=== PATIENT | female | born 1945 | race Caucasian/White ===

== ENCOUNTER → 2019-07-02 | Day surgery (SDC) | payer MEDICARE ==
[2019-06-28 09:00] LABS: BASOPHILS # (AUTO) 0.1 (0.0-0.1); BASOPHILS % 0.9 % (0.0-1.0); EOSINOPHILS # (AUTO) 0.3 (0.0-0.4); EOSINOPHILS % 6.2 % (0.0-6.0); HEMATOCRIT 41.4 % (34.2-44.1); HEMOGLOBIN 13.7 g/dL (12.0-16.0); LYMPHOCYTES # (AUTO) 1.3 (1.0-3.2); LYMPHOCYTES % 23.9 % (18.0-39.1); MEAN CORPUSCULAR HEMOGLOBIN 29.7 pg (28-32); MEAN CORPUSCULAR HGB CONC 33.1 g/dL (31-35); MEAN CORPUSCULAR VOLUME 89.8 fL (81-99); MONOCYTES # (AUTO) 0.6 (0.2-0.8); MONOCYTES % 10.7 % (4.4-11.3); NEUTROPHILS # (AUTO) 3.2 (2.1-6.9); NEUTROPHILS % 57.9 % (38.7-80.0); PLATELET COUNT 177 x10e3/uL (140-360); RED BLOOD COUNT 4.61 x10e6/uL (3.6-5.1); RED CELL DISTRIBUTION WIDTH 12.7 % (11.7-14.4)
[~2019-07-02] MED LIST: ARIMIDEX1 MG PO; CENTRUM SILVER1 EAC3 PO; COSAMIN DS TAB1 EACH PO; FENTANYL CITRATE/PF 100MCG/2 ML INJ ONE; HYOSCYAMINE 0.125 MG TAB ONE; MIDAZOLAM HCL 2 MG/2 ML VIAL ONE; PHENYLEPHRINE HCL 1% 10 MG/ML VIAL ONE; PROPOFOL IV EMULSION 10 MG/ML 50 ML VIAL ONE; SYNTHROID50 MCG PO; TYLENOL EXTRA500 MG PO; VITAMIN D31000 UNI1 PO; VITAMIN D32000 UNI1 PO
--- OUTSIDE RECORDS SUMMARY | 2019-07-02 07:05 | XMS REPORT ---
Author Author [facility] Address Unknown Phone Unavailable Care Team Providers Care Nutrition Associate Name Role Phone Unavailable Unavailable Payers Payer Name Policy Type Policy Number Effective Date Expiration Date Problems This patient has no known problems. Allergies, Adverse Reactions, Alerts Allergy Name Allergy Type Status Severity Reaction(s) Onset Date Inactive Date Treating Clinician Comments levofloxacin DA Active MO 2017-01-08 00:00:00 Medications This patient has no known medications.
--- OUTSIDE RECORDS SUMMARY | 2019-07-02 07:05 | XMS REPORT ---
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 Problem Deviated nasal septum J34.2 Active Problem 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 Active Problem Nasal congestion R09.81 Active Problem 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 Problem Sneezing R06.7 Active Assessment Deviated nasal septum J34.2 Active Assessment Sneezing R06.7 Active Assessment 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 Active Assessment 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 Assessment 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 Assessment Sinusitis - Chronic J32.8 Active Assessment Nasal congestion R09.81 Active Assessment Headache R51 Active Problem Postnasal drip R09.82 Active Medications Medication Code System Code Instructions Start Date End Date Status Dosage Arimidex [facility] [address]-40 Active not defined Centrum Silver [facility] [address]-42 Active not defined Synthroid [facility] [address]-35 Active not defined Vitamin D-3 [facility] [address] Active not defined Cosamin ASU for Joint Health [facility] [address] Active not defined Results Name Result Date Reference Range Unit Abnormality Flag CT Sinus with [place] Summary Purpose eClinicalWorks Submission
--- OUTSIDE RECORDS SUMMARY | 2019-07-02 07:05 | XMS REPORT ---
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
[2019-07-02 10:20] VITALS: BP 120/75
--- NOTE | 2019-07-02 13:00 | Operative Report ---
DATE OF PROCEDURE: 07/02/2019 SURGEON: Cristhian Kang MD PROCEDURE: Colonoscopy with polypectomy. INDICATIONS FOR COLONOSCOPY: Surveillance colonoscopy, personal history of colon polyps. MEDICATIONS: The patient was done under MAC, please see anesthesiologist's note. PROCEDURE IN DETAIL: With the patient in left lateral decubitus position, a flexible fiberoptic Olympus colonoscope was inserted into the rectum with ease and advanced all the way to the cecum. Mucosa overlying the cecum appeared to be within normal limits. One polyp was removed per cold biopsy forceps in the proximal ascending colon. The rest of the ascending, transverse, and descending appeared to be within normal limits. Diverticular disease was noted in the sigmoid colon. The rectum appeared to be within normal limits. The scope was then retroflexed into the distal rectum and small internal hemorrhoids were noted, none of which was actively bleeding. The scope was then straightened out, it was subsequently withdrawn, and the patient tolerated the procedure well. IMPRESSION: 1. Ascending colon polyp, minute, removed per cold biopsy forceps. 2. Diverticulosis. 3. Internal hemorrhoids, none actively bleeding. PLAN: Follow up histology. Continue high-fiber, low-fat diet. Initiate high-fiber supplement. Needs a followup colonoscopy in 5 years. MD JEN Baig/ROSAURA /[id number] cc: Mathew Ryan MD
== END | disposition home or self-care (01) ==
LOC: OR 07:00
PROVIDERS: ATTEND Internal Medicine Gastroenterology
DX: Z09 Encounter for follow-up examination after completed treatment for conditions other than malignant neoplasm (principal); K63.5 Polyp of colon; K52.9 Noninfective gastroenteritis and colitis, unspecified; K57.30 Diverticulosis of large intestine without perforation or abscess without bleeding; K64.8 Other hemorrhoids; Z88.1 Allergy status to other antibiotic agents; Z01.810 Encounter for preprocedural cardiovascular examination; Z01.812 Encounter for preprocedural laboratory examination; Z85.3 Personal history of malignant neoplasm of breast; Z92.3 Personal history of irradiation; Z80.0 Family history of malignant neoplasm of digestive organs
CPT/HCPCS: 36415; 45380; 85025; 88305; 93005; J2250; J2370; J2704; J3010; 45378; 45384; 45385

== ENCOUNTER → 2024-12-17 | Day surgery (SDC) | payer MEDICARE, OTHER ==
[2024-12-09 10:24] LABS: BASOPHILS # (AUTO) 0.1 (0.0-0.1); BASOPHILS % 0.9 % (0.0-1.0); EOSINOPHILS # (AUTO) 0.2 (0.0-0.4); EOSINOPHILS % 3.4 % (0.0-6.0); HEMOGLOBIN 14.2 g/dL (12.0-16.0); LYMPHOCYTES # (AUTO) 1.8 (1.0-3.2); LYMPHOCYTES % 27.2 % (18.0-39.1); MEAN CORPUSCULAR HEMOGLOBIN 29.7 pg (28-32); MEAN CORPUSCULAR HGB CONC 33.8 g/dL (31-35); MEAN CORPUSCULAR VOLUME 87.9 fL (81-99); MONOCYTES # (AUTO) 0.7 (0.2-0.8); MONOCYTES % 10.4 % (4.4-11.3); NEUTROPHILS # (AUTO) 3.8 (2.1-6.9); NEUTROPHILS % 57.8 % (38.7-80.0); PLATELET COUNT 195 x10e3/uL (140-360); RED BLOOD COUNT 4.78 x10e6/uL (3.6-5.1); RED CELL DISTRIBUTION WIDTH 12.7 % (11.7-14.4); WHITE BLOOD COUNT 6.55 x10e3/uL (4.8-10.8)
[~2024-12-17] MED LIST changes: +AMLODIPINE BESYL5 MG PO; +GLUCAGON FOR INJ 1 MG VIAL ONE; +HYDROCHLOROTHIA25 MG PO; -HYOSCYAMINE 0.125 MG TAB ONE; +HYOSCYAMINE SULFATE 0.5 MG/ML INJ ONE; +LIDOCAINE HCL 2% LOCAL INJ 5 ML SDV VIAL INJ ONE; -PHENYLEPHRINE HCL 1% 10 MG/ML VIAL ONE; -PROPOFOL IV EMULSION 10 MG/ML 50 ML VIAL ONE; +PROPOFOL IV EMULSION 50 ML IV ONE
[2024-12-17] MEDS: LACTATED RINGER'S 1,000 ML ONE (06:45)
[2024-12-17 10:00] VITALS: BP 113/70; PULSE 56; RESP 16; O2SAT 98
[2024-12-17 10:16] LABS: ALBUMIN 1.3 g/dL (3.5-5.0); ALKALINE PHOSPHATASE 28 IU/L (40-150); BILIRUBIN,DIRECT 0.2 mg/dL (0.0-0.5); BILIRUBIN,TOTAL 0.4 mg/dL (0.2-1.2); TOTAL PROTEIN 2.2 g/dL (6.5-8.1)
[2024-12-17 10:18] LABS: ALANINE AMINOTRANSFERASE < 6 IU/L (0-55)
== END | disposition home or self-care (01) ==
LOC: OR 05:58
PROVIDERS: ATTEND Internal Medicine Gastroenterology
DX: K21.9 Gastro-esophageal reflux disease without esophagitis (principal); D12.2 Benign neoplasm of ascending colon; K29.70 Gastritis, unspecified, without bleeding; K31.89 Other diseases of stomach and duodenum; K44.9 Diaphragmatic hernia without obstruction or gangrene; K57.30 Diverticulosis of large intestine without perforation or abscess without bleeding; K64.8 Other hemorrhoids; R05.3 Chronic cough; I10 Essential (primary) hypertension; E03.9 Hypothyroidism, unspecified; Z88.1 Allergy status to other antibiotic agents; Z01.810 Encounter for preprocedural cardiovascular examination; Z01.812 Encounter for preprocedural laboratory examination; Z79.899 Other long term (current) drug therapy; Z85.3 Personal history of malignant neoplasm of breast; Z92.3 Personal history of irradiation
CPT/HCPCS: 36415 ×2; 43239; 45385; 80076; 85025; 93005; J1610; J1980; J2003; J2250; J2470; J2704; J3010; J7121; 45378

== ENCOUNTER → 2025-01-10 | Outpatient (REF) | payer MEDICARE ==
[~2025-01-10] MED LIST changes: -FENTANYL CITRATE/PF 100MCG/2 ML INJ ONE; -GLUCAGON FOR INJ 1 MG VIAL ONE; -HYOSCYAMINE SULFATE 0.5 MG/ML INJ ONE; -LIDOCAINE HCL 2% LOCAL INJ 5 ML SDV VIAL INJ ONE; -MIDAZOLAM HCL 2 MG/2 ML VIAL ONE; -PROPOFOL IV EMULSION 50 ML IV ONE
== END ==
LOC: US 08:06
PROVIDERS: ATTEND Nurse Practitioner
DX: I85.00 Esophageal varices without bleeding (principal)
CPT/HCPCS: 76700